=== PATIENT | male | born 1955 | race Caucasian/White ===

== ENCOUNTER → 2025-02-27 13:05 | Outpatient (CLI) | payer MEDICARE, SELFPAY ==
--- NOTE | 2025-02-27 13:11 | DI.RAD.S_ITS ---
PROCEDURE: XR KNEE LT 3V INDICATIONS: LT KNEE PAIN TECHNIQUE: 3 views of the knee were acquired. COMPARISON: None. FINDINGS: Bones: No fractures or dislocations. Mild tricompartmental osteoarthritic changes with osteophytosis and mild medial compartment joint space narrowing. No suspicious bony lesions. Soft tissues: No joint effusion. No suspicious soft tissue calcifications. IMPRESSION: Mild osteoarthritic changes of the knee. No acute osseous abnormalities. Dictated by: Sánchez Neumann M.D. on 02/27/2025 at 15:37 Approved by: Sánchez Neumann M.D. on 02/27/2025 at 15:38
== END ==
PROVIDERS: Referring Provider Family Medicine; Visit Provider Family Medicine
DX: M25.562 Pain in left knee (principal)
CPT/HCPCS: 73562